=== PATIENT | male | born 1985 | race American Indian/Alaskan Native ===

== ENCOUNTER 2017-10-04 23:20 | Inpatient (IN) | payer OTHER ==
[2017-10-04] MEDS ORDERED: ASPIRIN PO ONE (23:39)
--- NOTE | 2017-10-04 23:55 | Emergency Department Report ---
HPI - General Chief Complaint: Chest Pain - HPI HPI: The patient is a 32-year-old male presents for evaluation of chest pain for the past one day. He reports 1 day of sharp in quality, midsternal chest pain, 10/ 10 in severity, worse with taking deep breaths, and associated with moderate in severity dyspnea exacerbated with exertion and improved with rest. The patient denies fever, neck pain, parasthesias, hemoptysis, palpitations, dizziness, syncope, unilateral leg swelling, calf muscle pain. Patient also denies cocaine or other stimulant use, history of DVT or PE, recent immobilization, or history of cancer. ED Past Medical Hx - Past Medical History Previous Medical History?: No - Surgical History Past Surgical History?: No - Social History Smoking Status: Current Every Day Smoker Substance Use Type: Alcohol, Marijuana ED Review of Systems ROS: Stated complaint: CHEST PAIN Other details as noted in HPI Constitutional: denies: fever ENT: denies: throat or neck pain Respiratory: reports cough, shortness of breath Cardiovascular: reports chest pain Endocrine: denies unexplained weight loss or gain Gastrointestinal: denies: abdominal pain, nausea Genitourinary: denies: dysuria Musculoskeletal: denies: leg swelling Skin: denies: rash Neurological: denies: headache Hematological/Lymphatic: denies: easy bleeding or easy bruising Psych: denies sadness or hopelessness Physical Exam - Physical Exam Vital Signs: Vital Signs 10/04/17 23:23 Temperature 101 F H Pulse Rate 117 H Respiratory 24 Rate Blood Pressure 141/88 O2 Sat by Pulse 99 Oximetry Physical Exam: General: well-nourished, well-developed, no acute distress Head: Normocephalic, atraumatic Eyes: normal sclera ENT: Mucous membranes are pale and dry, bilateral nasal congestion is present Neck: No neck stiffness, no cervical adenopathy Respiratory: Breath sounds equal bilaterally, no wheezing, rales, or rhonchi Cardio: S1 and S2 present, no murmurs, rubs, gallops, capillary refill is delayed Abdomen: Normoactive bowel sounds, soft abdomen, no rigidity, no guarding or rebound tenderness Chest WALL/Back: No tenderness to palpation of the chest wall, no crepitus, fluctuance, swelling, bruising or redness Musc: No pitting edema Skin: No rash Neuro: no facial drooping, normal speech Psych: Normal affect ED Course Vital Signs 10/04/17 23:23 Temperature 101 F H Pulse Rate 117 H Respiratory 24 Rate Blood Pressure 141/88 O2 Sat by Pulse 99 Oximetry ED Medical Decision Making - Lab Data Result diagrams: 10/05/17 00:03 10/05/17 00:03 - Medical Decision Making The patient was seen and examined by myself. The patient is placed on a cardiac rn and continuous pulse ox. On initial evaluation, the patient was found to be in no distress. EKG was negative for findings suggestive of acute cardiac infarct. Labs and imaging are obtained. As the patient was found to be febrile, temp to 101F, with tachycardia, and influenza screen is obtained to rule out influenza induced sepsis. Chest x-ray is negative for pneumothorax, focal consolidation, pulmonary vascular congestion, pleural effusion, or other obvious acute cardiopulmonary disease process. Lab results exhibit elevated WBC 16, and otherwise labs were non-concerning including levels of troponin, electrolytes, renal function. CT angiogram of the chest exhibits bilateral lower lobe atelectasis. As patient is found to have bilateral lower lobe atelectasis with fever and elevated WBC, findings are concerning for multilobar pneumonia. The on-call hospitalist service was contacted. They agreed to admit the patient for further treatment and close monitoring. The ED admit order was placed. The patient was admitted in guarded condition. Critical care attestation.: If time is entered above; I have spent that time in minutes in the direct care of this critically ill patient, excluding procedure time. ED Disposition Clinical Impression: Acute chest pain, Dehydration Sepsis Qualifiers: Sepsis type: sepsis due to unspecified organism Qualified Code(s): A41.9 - Sepsis, unspecified organism Disposition: OP ADMIT IP TO THIS HOSP Is pt being admited?: Yes Does the pt Need Aspirin: Yes Condition: Serious Instructions: Chest Pain (ED) Referrals: JESSEE BEEBE MD [Primary Care Provider] - 3-5 Days Time of Disposition: :04
[2017-10-04] MEDS ORDERED: NACL 0.9% 1000 ML IV ONE (23:56)
--- NOTE | 2017-10-05 00:26 | XRay Report ---
FINAL REPORT PROCEDURE: XR CHEST ROUTINE 2V TECHNIQUE: PA and lateral chest radiographs were obtained. CPT 28796 HISTORY: chest pain fever COMPARISON: No prior studies are available for comparison. FINDINGS: Heart: Normal. Mediastinum/Vessels: Normal. Lungs/Pleural space: Normal. Bony thorax: No acute osseous abnormality. Other: IMPRESSION: There is no evidence of an acute cardiopulmonary process..
[2017-10-05 00:27] LABS: Basophils % (Auto) 0.3 % (0.0-1.8); Hematocrit 47.9 % (35.5-45.6); Hemoglobin 16.1 gm/dl (11.8-15.2); Lymphocytes # (Auto) 1.4 K/mm3 (1.2-5.4); Lymphocytes % (Auto) 8.7 % (13.4-35.0); Mean Corpuscular HGB Conc 34 % (32-34); Mean Corpuscular Hemoglobin 30 pg (28-32); Mean Corpuscular Volume 90 fl (84-94); Monocytes # (Auto) 1.4 K/mm3 (0.0-0.8); Monocytes % (Auto) 8.4 % (0.0-7.3); Platelet Count 218 K/mm3 (140-440); Red Blood Count 5.34 M/mm3 (3.65-5.03)
[2017-10-05 00:44] LABS: BUN/Creatinine Ratio 13; Blood Urea Nitrogen 17 mg/dL (9-20); Calcium 8.5 mg/dL (8.4-10.2); Hemolysis Index 12
[2017-10-05] MEDS ORDERED: SUBLIMAZE IV ONE (00:56)
[2017-10-05] MEDS ORDERED: ZOSYN/NS 3.375GM/50ML 3.375 GM/50 ML BAG IV ONE (00:58)
[2017-10-05] MEDS ORDERED: NACL ONE (01:32)
--- NOTE | 2017-10-05 02:02 | Cat Scan Report ---
FINAL REPORT PROCEDURE: CT ANGIO CHEST TECHNIQUE: Computerized tomographic angiography of the chest was performed after the IV injection of iodinated nonionic contrast including image processing. The image data was postprocessed using 2-dimensional multiplanar reformatted (MPR) and 3-dimensional (MIP and/or volume rendered) techniques. HISTORY: midsternal chest pain, fever COMPARISON: No prior studies are available for comparison. FINDINGS: Heart and pericardium: The heart size is normal. The mediastinum is normal. There is a nodular region in the lower right lobe of the thyroid gland. This is not fully evaluated on this study.. Thoracic aorta: Normal. Pulmonary vasculature: There is no evidence of pulmonary arterial emboli.. Lymph nodes: No enlarged thoracic lymph nodes. Lungs: Mild atelectasis bilateral lower lungs. No consolidation, effusion or pneumothorax. The central airway is patent. Pleural space: No effusion, thickening, or pneumothorax. Musculoskeletal structures: No significant abnormality. Upper abdominal structures: No significant abnormality. IMPRESSION: Mild atelectasis bilateral lower lungs. No effusion or pneumothorax. There is no evidence of pulmonary arterial emboli.
[2017-10-05] MEDS ORDERED: MOTRIN PO ONE ×2 (02:04→04:15)
[2017-10-05] MEDS ORDERED: MORPHINE IV PRN (05:40)
[2017-10-05] MEDS ORDERED: MILK OF MAGNESIA PO PRN (05:40)
[2017-10-05] MEDS ORDERED: DULCOLAX PR PRN (05:40)
[2017-10-05] MEDS ORDERED: ZOFRAN IV PRN (05:40)
[2017-10-05] MEDS ORDERED: TYLENOL PO PRN (05:40)
--- NOTE | 2017-10-05 05:43 | History and Physical Report ---
History of Present Illness Date of examination: 10/05/17 History of present illness: 32-year-old man with no medical problems comes emergency room with complaints of chest pain. Pain is in the epigastric area which he describes a sharp pain, intermittent and lasting for a few seconds, intensity 4/10, no radiation, intended to identify exacerbating or relieving factors. Admits to nausea, no vomiting, diaphoresis or palpitation. He started having fever and chills today Review Of Systems: Constitutional: no weight loss Ears, eyes, nose, mouth and throat: no nasal congestion, no nasal discharge, no sinus pressure, blurry vision, diplopia Neck: No neck pain or rigidity. Cardiovascular: No chest pain, palpitations Respiratory: No shortness of breath, cough Gastrointestinal: No abdominal pain, hematochezia Genitourinary : no dysuria, frequency , hematuria Musculoskeletal: no muscle ache Integumentary: no rash, no pruritis Neurological: no parathesias, focal weakness Endocrine: no cold or heat intolerance, no polyuria or polydipsia Hematologic/Lymphatic: no easy bruising, no easy bleeding, no gland swelling Allergic/Immunologic: no urticaria, no angioedema. PAST MEDICAL HISTORY: None PAST SURGICAL HISTORY: None FAMILY HISTORY: Hypertension SOCIAL HISTORY: Smokes half a day, admits to drinking and cocaine use, last use of cocaine was Friday Medications and Allergies Allergies Allergy/AdvReac Type Severity Reaction Status Date / Time iodine Allergy Swelling Verified 10/04/17 23:23 Exam - Physical Exam Narrative exam: Gen. appearance: Patient lying in bed in no acute distress HEENT: Normocephalic/atraumatic, pupils equal round reactive to light, extra occular movement intact, no scleral icterus, no JVD or thyromegaly or nodule, neck is supple, mucous membrane moist, no erythema or exudate Heart: S1-S2, regular rate and rhythm Lungs: Clear to auscultation bilateral breathing comfortable Abdomen: Positive bowel sounds, nontender, nondistended, no organomegaly Extremities: No edema, cyanosis, clubbing Neuro:: Oriented 3 , cranial nerves II-12 intact, speech, motor intact Skin: No rash, nodules, warm dry - Constitutional Vitals: Temp Pulse Resp BP Pulse Ox 101 F H 117 H 24 141/88 99 10/04/17 23:23 10/04/17 23:23 10/04/17 23:23 10/04/17 23:23 10/04/17 23:23 Results - Labs CBC & Chem 7: 10/05/17 00:03 10/05/17 00:03 Labs: Abnormal lab results 10/05/17 10/05/17 10/05/17 Range/Units 00:03 00:03 02:59 WBC 16.2 H (4.5-11.0) K/mm3 RBC 5.34 H (3.65-5.03) M/mm3 Hgb 16.1 H (11.8-15.2) gm/dl Hct 47.9 H (35.5-45.6) % Lymph % (Auto) 8.7 L (13.4-35.0) % Cooper % (Auto) 8.4 H (0.0-7.3) % Cooper # 1.4 H (0.0-0.8) K/mm3 Seg Neutrophils % 82.6 H (40.0-70.0) % Seg Neutrophils # 13.4 H (1.8-7.7) K/mm3 Sodium 134 L (137-145) mmol/L Chloride 94.2 L (98-107) mmol/L C-Reactive Protein 1.40 H (0.00-1.30) mg/dL - Imaging and Cardiology EKG: image reviewed Chest x-ray: image reviewed CT scan - chest: report reviewed Assessment and Plan Assessment SIRS Chest pain Substance abuse Plan Admit medicine Start IV fluids, empiric Zosyn, IV morphine check urinalysis, follow blood cultures Check cardiac enzymes, obtain stress test DVT prophylaxis
[2017-10-05] MEDS: ZOSYN/NS 4.5GM/100ML 4.5 GM/100 ML VIAL IV SCH ×3 (07:16→22:20)
[2017-10-05] MEDS: NACL 0.9% 1000 ML 1,000 ML IV SCH (07:16)
[2017-10-05] MEDS: LOVENOX SUB-Q SCH (11:13)
[2017-10-05 14:35] LABS: Bilirubin,Urine NEG (Negative); Blood,Urine NEG (Negative); Color,Urine Yellow (Yellow); Mucus,Urine FEW /HPF; Nitrite,Urine NEG (Negative); Protein,Urine <15 mg/dL mg/dL (Negative); RBC,Urine < 1.0 /HPF (0.0-6.0); Urobilinogen,Urine < 2.0 mg/dL (<2.0)
--- NOTE | 2017-10-05 16:15 | Event Note ---
Date: 10/05/17 Patient seen and evaluated medical records reviewed Admitted this morning with chest pain, GERD and history of substance abuse Workup is in progress Agree with the current management Plan of care discussed with the patient and his nurse
[2017-10-06 05:10] LABS: Basophils % (Auto) 0.4 % (0.0-1.8); Eosinophils % (Auto) 0.5 % (0.0-4.3); Hematocrit 43.5 % (35.5-45.6); Hemoglobin 14.4 gm/dl (11.8-15.2); Lymphocytes # (Auto) 1.8 K/mm3 (1.2-5.4); Lymphocytes % (Auto) 20.9 % (13.4-35.0); Mean Corpuscular HGB Conc 33 % (32-34); Mean Corpuscular Hemoglobin 30 pg (28-32); Mean Corpuscular Volume 91 fl (84-94); Monocytes # (Auto) 1.2 K/mm3 (0.0-0.8); Monocytes % (Auto) 13.5 % (0.0-7.3); Platelet Count 185 K/mm3 (140-440)
[2017-10-06 05:31] LABS: BUN/Creatinine Ratio 7; Blood Urea Nitrogen 8 mg/dL (9-20); Calcium 7.7 mg/dL (8.4-10.2); Hemolysis Index 28
[2017-10-06] MEDS: ZOSYN/NS 4.5GM/100ML 4.5 GM/100 ML VIAL IV SCH (06:12)
[2017-10-06 08:53] VITALS: BP 117/73
[2017-10-06] MEDS: NACL 0.9% 1000 ML 1,000 ML IV SCH (09:52)
[2017-10-06] MEDS: LOVENOX SUB-Q SCH (09:53)
[2017-10-06] MEDS ORDERED: Fluarix Quad 2017-2018(36 MOS+ IM ONE (12:00)
[2017-10-06] MEDS ORDERED: PNEUMOVAX 23 IM ONE (12:00)
--- NOTE | 2017-10-06 12:24 | Discharge Summary ---
Providers - Providers Date of Admission: 10/05/17 05:41 Date of discharge: 10/06/17 Attending physician: YULISSA DUNN Primary care physician: JESSEE BEEBE Hospitalization Reason for admission: fever chills and chest pain Condition: Stable Pertinent studies: Chest x-ray; no acute cardiopulmonary abnormality noted CT chest; mild atelectasis bilateral lower lungs no effusion or pneumothorax no evidence of PE Hospital course: Ela shahid 82-year-old obese male patient with no significant past medical history not on any medications ongoing tobacco use was admitted through emergency room with atypical chest pain nausea vomiting fever and chills patient was initially evaluated admitted to the hospital, rapid flu test was negative However signs and symptoms are consistent with acute bronchitis Patient was admitted and treated with empiric antibiotics for possible bronchitis/pneumonia as well as supportive care Patient's symptoms significantly improved, today he is comfortable no new complaints, Vital signs stable [id number] evaluation and physical examination done by me at discharge is unremarkable Patient has no fever, denies shortness of breath or chest pain, no white count, and cultures are negative to date Patient is hemodynamically and clinically stable for discharge and advised to follow with primary care physician in 3-4 days Patient is also advised to distressed from work checked with the primary care physician if unable to resume work after today's Hemodynamically and clinically stable at discharge Smoking cessation counseling done, strongly advised to quit tobacco use, nicotine patch as needed Discharge diagnosis: --Febrile illness --SIRS --Acute bronchitis --Atypical chest pain probably due to GERD Disposition: DC-01 TO HOME OR SELFCARE Time spent for discharge: 32 min Core Measure Documentation - Palliative Care Palliative Care/ Comfort Measures: Not Applicable - Core Measures Any of the following diagnoses?: none Exam - Constitutional Vitals: Temp Pulse Resp BP Pulse Ox 99.0 F 80 20 117/73 96 10/06/17 08:20 10/06/17 08:20 10/06/17 08:20 10/06/17 08:20 10/06/17 08:20 General appearance: Present: no acute distress, well-nourished - EENT Eyes: Present: PERRL, EOM intact - Neck Neck: Present: supple, normal ROM - Respiratory Respiratory effort: normal Respiratory: negative: rales, rhonchi, wheezing - Cardiovascular Rhythm: regular Heart Sounds: Present: S1 & S2 - Extremities Extremities: no ischemia, No edema - Abdominal General gastrointestinal: Present: soft, non-tender, non-distended, normal bowel sounds - Integumentary Integumentary: Present: clear, warm - Musculoskeletal Musculoskeletal: strength equal bilaterally - Psychiatric Psychiatric: appropriate mood/affect, cooperative - Neurologic Neurologic: CNII-XII intact, moves all extremities Plan Activity: no restrictions Diet: regular Additional Instructions: Advised 2 days rest on 10/07/2017 and 10/08/2017. Check with primary care physician for further instructions. Smoking cessation counseling done Follow up with: JESSEE BEEBE MD [Primary Care Provider] - 3-5 Days Forms: Work/School Release Form Prescriptions: Azithromycin [Zithromax Z-SARA] 0 mg PO DAILY #1 tab guaiFENesin/DEXTROMETHORPHAN [Robitussin [id number] Dm] 1 each PO TID PRN 21 Days capsule PRN Reason: Cough Nicotine [Habitrol] 14 mg TD DAILY #30 patch
== END 2017-10-06 13:34 | disposition home or self-care (01) | DRG 202 ==
LOC: ED 23:20 → 4A 10-05 05:41
PROVIDERS: ADMIT Internal Medicine; ATTEND Internal Medicine
PROC: 3E0234Z Introduction of Serum, Toxoid and Vaccine into Muscle, Percutaneous Approach (ICD-10-PCS; principal; 2017-10-06)
DX: J20.9 Acute bronchitis, unspecified (principal); R65.10 Systemic inflammatory response syndrome (SIRS) of non-infectious origin without acute organ dysfunction; K21.9 Gastro-esophageal reflux disease without esophagitis; Z23 Encounter for immunization; F17.210 Nicotine dependence, cigarettes, uncomplicated; E86.0 Dehydration; Z82.49 Family history of ischemic heart disease and other diseases of the circulatory system; Z91.041 Radiographic dye allergy status; F12.10 Cannabis abuse, uncomplicated
CPT/HCPCS: 36415; 71046; 71275; 80048; 81001; 82140; 83880; 84484; 85025; 86140; 87040; 87400; 90686; 90732; 93005; 93010; J1650; J2543; J3010; J7030; Q9967